=== PATIENT | female | born 1995 | race Asian ===

== ENCOUNTER 2017-03-01 08:54 | Emergency (ER) | payer SELFPAY ==
[2017-03-01 09:30] VITALS: BP 134/70
--- NOTE | 2017-03-01 09:32 | Emergency Department Report ---
Chief Complaint: Abdominal Pain Stated Complaint: SORETHROAT AND BODYACHES Time Seen by Provider: 03/01/17 09:27 - HPI History of Present Illness: pt states she has a hx of gallstones. pt c/o RUQ abd pain x a couple of days, 3 episodes of vomiting, and sore throat - ROS Review of Systems: + sore throat + fever - subjective + abd pain + n/v - Exam Physical Exam: pt looks well, non toxic. flory tonsilar hypertrophy - no abscess noted pt c/o RUQ abd pain. no tenderness on my exam abd soft MSE screening note: Focused history and physical exam performed. Due to findings the following was ordered: labs ED Disposition for MSE Condition: Stable
[2017-03-01 10:17] LABS: Basophils % (Auto) 0.2 % (0.0-1.8); Eosinophils % (Auto) 0.8 % (0.0-4.3); Hematocrit 41.8 % (30.3-42.9); Hemoglobin 13.8 gm/dl (10.1-14.3); Mean Corpuscular HGB Conc 33 % (30-34); Mean Corpuscular Hemoglobin 27 pg (28-32); Mean Corpuscular Volume 82 fl (79-97); Platelet Count 319 K/mm3 (140-440); Red Blood Count 5.07 M/mm3 (3.65-5.03); Red Cell Distribution Width 13.1 % (13.2-15.2); White Blood Count 18.4 K/mm3 (4.5-11.0)
[2017-03-01 10:30] LABS: Alanine Aminotransferase 28 units/L (7-56); Albumin 3.9 g/dL (3.9-5); Albumin/Globulin Ratio 1.1 %; Alkaline Phosphatase 70 units/L (35-129); Anion Gap 19 mmol/L; Blood Urea Nitrogen 11 mg/dL (7-17); Carbon Dioxide 22 mmol/L (22-30); Chloride 102.3 mmol/L (98-107); Glucose 119 mg/dL (65-100); Lipase 19 units/L (13-60); Sodium 139 mmol/L (137-145); Total Protein 7.3 g/dL (6.3-8.2)
--- NOTE | 2017-03-06 10:54 | ED Elopement Review ---
ED Pt Elopement review - Results review Lab results: Laboratory Tests 03/01/17 03/01/17 03/01/17 09:45 09:45 09:45 WBC 18.4 H RBC 5.07 H Hgb 13.8 Hct 41.8 MCV 82 MCH 27 L MCHC 33 RDW 13.1 L Plt Count 319 Lymph % (Auto) 6.6 L Beadle % (Auto) 4.0 Eos % (Auto) 0.8 Baso % (Auto) 0.2 Lymph # 1.2 Beadle # 0.7 Eos # 0.1 Baso # 0.0 Seg Neutrophils % 88.4 H Seg Neutrophils # 16.3 H Sodium 139 Potassium 4.0 Chloride 102.3 Carbon Dioxide 22 Anion Gap 19 BUN 11 Creatinine 0.4 L Estimated GFR > 60 BUN/Creatinine Ratio 27.50 Glucose 119 H Calcium 9.0 Total Bilirubin 0.70 AST 19 ALT 28 Alkaline Phosphatase 70 Total Protein 7.3 Albumin 3.9 Albumin/Globulin Ratio 1.1 Lipase 19 HCG, Qual Negative - Call Back decision Pt Call Back Decision: No action required
== END 2017-03-01 10:00 | disposition left against medical advice (07) ==
LOC: ED 08:54
DX: J02.9 Acute pharyngitis, unspecified (principal); M79.1 Myalgia; Z53.21 Procedure and treatment not carried out due to patient leaving prior to being seen by health care provider
CPT/HCPCS: 36415; 80053; 83690; 84703; 85025

== ENCOUNTER 2019-07-11 17:40 | Emergency (ER) | payer OTHER ==
[2019-07-11 17:55] VITALS: BP 122/78
--- NOTE | 2019-07-11 18:17 | Emergency Department Report ---
Blank Doc - Documentation Documentation: 23-year-old female that presents with headache and left eye pain. 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 This initial assessment/diagnostic orders/clinical plan/treatment(s) is/are subject to change based on patient's health status, clinical progression and re- assessment by fellow clinical providers in the ED. Further treatment and workup at subsequent clinical providers discretion. Patient/guardians urged not to elope from the ED as their condition may be serious if not clinically assessed and managed. Initial orders include: 1- Patient sent to [facility] for further evaluation and treatment 2- tonopen needed 3- visual testing
== END 2019-07-11 22:00 | disposition left against medical advice (07) ==
LOC: ED 17:40
DX: R51 Headache (principal); H53.8 Other visual disturbances; Z53.21 Procedure and treatment not carried out due to patient leaving prior to being seen by health care provider